=== PATIENT | female | born 1930 | race Caucasian/White ===

== ENCOUNTER 2016-11-07 10:48 | Emergency (ER) | payer MEDICARE ==
[2016-11-07 11:51] LABS: ABSOLUTE NEUTROPHIL COUNT 6.3 K/mm3 (1.8-7.7); BASO # 0.1 K/mm3 (0.0-0.2); BASO % 0.6 % (0.2-1.0); EOS # 0.2 (0.0-0.5); EOS % 2.5 % (0.9-2.9); HEMATOCRIT 44.8 % (37.0-47.0); HEMOGLOBIN 14.3 gm/l (12.0-16.0); IMM NEUT% 0.3 % (0-1); LYMPH # 1.6 (1.0-4.8); LYMPH % 18.6 % (15-45); MEAN CELL VOLUME 95.5 fl (81.0-99.0); MEAN CORPUSCULAR HEMOGLOBIN 30.5 pg (27.0-31.0); MEAN CORPUSCULAR HGB CONC 31.9 g/dl (33.0-37.0); MEAN PLATELET VOLUME 9.6 fl (7.4-10.4); MONO # 0.5 (0.0-0.8); MONO % 5.4 % (4-12); NEUT % 72.6 % (43-75); PLATELET COUNT 279 K/mm3 (130-400); RED CELL DISTRIBUTION WIDTH 13.2 % (11.5-14.5)
[2016-11-07 12:17] LABS: URINE BILIRUBIN NEGATIVE (NEGATIVE); URINE BLOOD NEGATIVE (NEGATIVE); URINE GLUCOSE (UA) NEGATIVE (NEGATIVE); URINE LEUKOCYTE ESTERASE NEGATIVE (NEGATIVE); URINE NITRITE NEGATIVE (NEGATIVE); URINE PROTEIN NEGATIVE (NEGATIVE); URINE UROBILINOGEN NORMAL (0-1 mg/dl)
[2016-11-07 12:19] LABS: URINE APPEARANCE CLEAR; URINE COLOR YELLOW
[2016-11-07 12:27] LABS: ALB/GLOB RATIO 1.5 (>1.0); ALBUMIN 4.3 gm/dL (3.5-5.7); CALCIUM 9.4 mg/dL (8.6-10.3); MAGNESIUM 2.1 mg/dL (1.9-2.7)
--- NOTE | 2016-11-07 12:40 | CT ---
HEAD W/O CON COMPARISON: Head CT without contrast 09/05/2016 HISTORY: Confusion TECHNIQUE: Using a [employer] Aqu[employer] [address] scanner, images were obtained through the head. An automated dose reduction technique was used to minimize patient radiation dose. DOSE INFORMATION: CTDIvol (mGy): 51.70 DLP(mGycm): 913.10 FINDINGS: Mass: None Intracranial Hemorrhage: None Acute Infarction: None Cerebral hemispheres: No change. Marked atrophy. Diffuse low-attenuation in the white matter. Basal ganglia: Normal Thalami: Normal Brainstem: Normal Cerebellum: Normal Ventricles: No change. Marked ventriculomegaly. Basilar cisterns: Normal Corpus callosum: No change. Superiorly displaced and thin. Pituitary fossa: Empty sella. Middle ears and mastoid air cells: Normal. Temporomandibular joints: Severe degenerative changes bilaterally. Orbits and sinuses: Normal Skull and scalp: Normal Dural sinuses and vessels: Normal IMPRESSION: 1. No change compared to 09/05/2016. 2. Severe cerebral atrophy and hydrocephalus. 3. Severe osteoarthritis of both temporomandibular joints. The report was sent to the emergency department [employer] medical record system 11/07/2016 at 12:41
--- NOTE | 2016-11-07 12:50 | RAD ---
EXAMINATION:CHEST - 2 VIEWS CLINICAL INDICATION: Weakness and dizziness. COMPARISON: 12/10/2011. FINDINGS: The cardiomediastinal silhouette is unaltered from the prior examination. There is no adenopathy identified. There is no pleural effusion. Linear opacities/scarring involving the right upper lung zone is similar to the prior exam. No acute infiltrate is identified. The osseous structures are unremarkable for age. IMPRESSION: Stable senescent and postinflammatory changes of the thorax with no acute cardiopulmonary process identified.
== END 2016-11-07 14:00 | disposition home or self-care (01) ==
LOC: ED 10:48
DX: R41.82 Altered mental status, unspecified (principal); I69.911 Memory deficit following unspecified cerebrovascular disease; I10 Essential (primary) hypertension; Z86.73 Personal history of transient ischemic attack (TIA), and cerebral infarction without residual deficits

== ENCOUNTER 2016-11-28 08:09 | Emergency (ER) | payer MEDICARE ==
[2016-11-28 08:42] LABS: ABSOLUTE NEUTROPHIL COUNT 4.6 K/mm3 (1.8-7.7); BASO # 0.1 K/mm3 (0.0-0.2); BASO % 0.8 % (0.2-1.0); EOS # 0.4 (0.0-0.5); EOS % 5.4 % (0.9-2.9); HEMATOCRIT 41.3 % (37.0-47.0); HEMOGLOBIN 13.6 gm/l (12.0-16.0); IMM NEUT% 0.1 % (0-1); LYMPH # 1.3 (1.0-4.8); LYMPH % 18.6 % (15-45); MEAN CELL VOLUME 93.4 fl (81.0-99.0); MEAN CORPUSCULAR HEMOGLOBIN 30.8 pg (27.0-31.0); MEAN CORPUSCULAR HGB CONC 32.9 g/dl (33.0-37.0); MEAN PLATELET VOLUME 9.4 fl (7.4-10.4); MONO # 0.8 (0.0-0.8); MONO % 10.8 % (4-12); NEUT % 64.3 % (43-75); PLATELET COUNT 257 K/mm3 (130-400); RED CELL DISTRIBUTION WIDTH 13.4 % (11.5-14.5)
[2016-11-28] MEDS ORDERED: BENZONATATE 100 MG CAPSULE PO ONE (09:00)
[2016-11-28 09:01] LABS: ALB/GLOB RATIO 1.5 (>1.0); ALBUMIN 3.9 gm/dL (3.5-5.7)
--- NOTE | 2016-11-28 09:39 | RAD ---
CHEST 2 VIEWS HISTORY: Weakness, cough, and dizziness. Frontal and lateral chest radiographs dated 11/28/2016. COMPARISON: 11/07/2016. FINDINGS: FOCAL AIRSPACE OPACITY: No gross airspace consolidation. Scarring at the right upper lung field. PLEURAL EFFUSION: None. CARDIOMEDIASTINAL SILHOUETTE: Nonenlarged. Calcified hilar lymph nodes. Minor aortic calcification. PNEUMOTHORAX: None identified. OSSEOUS STRUCTURES: No grossly destructive lesions. Evidence of lumbar scoliosis and thoracic disc degeneration. UPPER ABDOMEN: Status post cholecystectomy. IMPRESSION: No acute cardiopulmonary process noted. Evidence of granulomatous exposure and prior cholecystectomy.
[2016-11-28] MEDS ORDERED: DOXYCYCLINE HYCLATE 100 MG TABLET ONE (10:06)
== END 2016-11-28 10:29 | disposition home or self-care (01) ==
LOC: ED 08:09
DX: J06.9 Acute upper respiratory infection, unspecified (principal); R06.02 Shortness of breath; K21.9 Gastro-esophageal reflux disease without esophagitis